=== PATIENT | female | born 1990 | race Caucasian/White ===

== ENCOUNTER 2023-03-15 03:03 | Emergency (ER) | payer MEDICAID, SELFPAY ==
[2023-03-15 03:05] VITALS: BP 135/87; PULSE 99; RESP 20; TEMP 35.8; O2SAT 98; BMI 47.5
[2023-03-15 03:09] VITALS: O2SAT 98
--- NOTE | 2023-03-15 03:36 | ED.VIS.DYS ---
HPI History of Present Illness Chief Complaint: Shortness of Breath Narrative Narrative: 32-year-old female presenting with dyspnea. She states she woke up with it. She states she believes she is having asthma exacerbation because her downstairs neighbor smoking marijuana. She denies fever or chills. States she was well before she went to bed. Patient states he is never had to be hospitalized for asthma. 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 Denies chest pain. She was diagnosed with DVT 02/20/2023. Has been on Eliquis since then. She has not missed any doses. PFSH PFS Medical History Anxiety Asthma Depression DVT (deep venous thrombosis) Home Medications apixaban 2.5 mg tablet (Eliquis) 2.5 mg PO BID 03/15/23 [History Last Taken Unknown] aripiprazole 15 mg tablet (Abilify) 15 mg PO DAILY 03/15/23 [History Last Taken Unknown] dexamethasone 6 mg tablet 6 mg PO DAILY #5 tabs 03/15/23 [Rx Last Taken Unknown] Allergy/AdvReac Type Severity Reaction Status Date / Time citalopram [From Celexa] Allergy Other Verified 03/15/23 03:07 prednisone Allergy Hives Verified 03/15/23 03:07 zinc Allergy Hives Verified 03/15/23 03:07 Surgical History no surgical history Social History Smoking Status: Current some day smoker tobacco type: cigarettes and e-cigarettes EXAM Physical Exam Const Vital Signs: 03/15/23 03:05 03/15/23 03:09 03/15/23 03:39 Temperature 96.5 F L Temperature Source Temporal Pulse Rate 99 105 H Respiratory Rate 20 H 18 Respiratory Effort Short of Breath Respiratory Depth Normal Respiratory Pattern Tachypnea Blood Pressure 135/87 H Blood Pressure Mean 103 Pulse Ox 98 Oxygen Delivery Method Room Air Room Air Positive well nourished General Appearance ED: NAD HEENT Reports moist mucous membranes atraumatic Eyes PERRL and EOMs intact bilaterally Resp normal respiratory effort and clear to auscultation bilaterally Cardio regular rate and regular rhythm Neuro oriented x3 and CN's II-XII intact bilaterally Motor Exam: strength 5/5 throughout Skin no wounds MDM MDM MDM Narrative Medical decision making narrative: Patient presenting with shortness of breath. Patient states he woke up from sleep with this just prior to coming to the ER. She is never been to [facility] before. I reviewed her history and Clinys[facility] and noted that she had been to the emergency room for a leg rash 02/05/2023 at [facility]. At this point the rash been there for about 5 months. She was discharged home and followed up again on 02/15/2023 and initially complaining of rash but then was admitted for suicidal ideation and was sent to [facility]. After her discharge she presented back to [facility] where she was then diagnosed with a DVT. She was at [facility] 03/08/2023 and evaluated with a negative work-up. She was seen again on 03/12/2023 she had a chest x-ray then which was negative. She also had a cardiac work-up with negative troponins x2. Hepatic panel. CBC. All these were normal. She was seen by [facility] urgent care on the for URI symptoms. At that point she had ear pressure and congestion. At that point she was diagnosed with a viral URI. She had a negative strep swab. She was just seen at [facility] prior to [facility] and was discharged home. She complains of shortness of breath due to marijuana smoke in her house. She does not distress. Her lungs do not sound wheezy but I did give her a DuoNeb and she feels subjectively better. She is allergic to prednisone so I gave her dexamethasone and she tolerated this. She will be sent home with new albuterol inhaler and a prescription for dexamethasone. Return precautions discussed. Impression: 1. Dyspnea 2. History of asthma Discharge Plan Triage Chief Complaint: Shortness of Breath ED Provider: Davy Roger Dx/Rx/DC Orders Instructions: ED Asthma, Acute (Adult) Prescriptions: New dexamethasone 6 mg tablet 6 mg PO DAILY Qty: 5 0RF No Action aripiprazole [Abilify] 15 mg Tablet 15 mg PO DAILY Eliquis 2.5 mg Tablet 2.5 mg PO BID Primary Care Provider: Care Physician,No Primary Referrals: Care Physician,No Primary [Primary Care Provider] - Disposition Disposition: Home, Self Care
[2023-03-15] MEDS: Ipratropium/Albuterol Sulfate 3 ML AMPUL.NEB INHALATION (03:38)
[2023-03-15 03:39] VITALS: PULSE 105; RESP 18
[2023-03-15] MEDS: dexAMETHasone 4 MG Tablet 6 MG PO (03:56)
[2023-03-15] MEDS: Albuterol Sulfate 8 gm Inhaler (60 puffs) 2 PUFF INHALATION (03:59)
[2023-03-15 04:08] VITALS: RESP 18; O2SAT 98
== END 2023-03-15 04:08 | disposition home or self-care (01) ==
PROVIDERS: Emergency Provider Student in an Organized Health Care Education/Training Program; Visit Provider Student in an Organized Health Care Education/Training Program
DX: R06.00 Dyspnea, unspecified (principal); F17.210 Nicotine dependence, cigarettes, uncomplicated; Z86.718 Personal history of other venous thrombosis and embolism; Z79.01 Long term (current) use of anticoagulants; F32.A Depression, unspecified; F17.290 Nicotine dependence, other tobacco product, uncomplicated; J45.909 Unspecified asthma, uncomplicated
CPT/HCPCS: 94640; 94664; 99283